=== PATIENT | male | born 1950 | race Caucasian/White ===

== ENCOUNTER 2019-01-02 11:39 | Inpatient (IN) ==
[2019-01-02] MEDS ORDERED: Albuterol 2.5 MG/3 ML NEBULIZER IH ONE (12:02)
[2019-01-02] MEDS ORDERED: cefOXitin 2,000 MG in Water for inj. (sterile) 20 ML IVP ONE (12:02)
--- NOTE | 2019-01-02 12:14 | Anesthesia Evaluation PreOp ---
Date of Encounter: 01/02/19 Time of Encounter: 12:12 - Past History Planned Operation: Robotic Abdominal Pernieal Resection Cardiac History: HTN, Hyperlipidemia Pulmonary History: Asthma, COPD (home O2 qhs) LEATHER [employer]T LO[employer] CUTTER History: Denies Any Significant HX Other Medical History: GERD, Other (rectal CA S/P chemo/XRT) Anesthesia History: No Prior Anesthetic Complications, Past Anesthesia Alcohol Use: occasionally Drug use: none Medications and Allergies Esomeprazole Magnesium [Nexium] 20 mg PO DAILY 09/11/16 [History] Fluticasone/Salmeterol [Advair 250-50 Diskus] 1 puff IH QPM 09/11/16 [History] Tiotropium [Spiriva] 1 puff IH 0700 09/11/16 [History] Tamsulosin HCl [Flomax] 0.4 mg PO DAILY #30 cap.er.24h 04/21/18 [Rx] amLODIPine [Norvasc] 5 mg PO DAILY #30 tablet 07/22/18 [Rx] DULoxetine [Cymbalta] 30 mg PO BID #60 capsule.dr 10/28/18 [Rx] Allergy/AdvReac Type Severity Reaction Status Date / Time No Known Allergies Allergy Verified 12/23/18 08:48 - Meds/Allergy Pre-op Review Medications Reviewed: Yes Allergies Reviewed: Yes Beta Blockers on Current Med List: No Anesthesia Results - Labs Laboratory Tests 05/21/17 12/09/18 12/09/18 13:26 07:50 07:56 WBC 2.3 L Hgb 12.4 L Hct 38.6 Plt Count 103 L PT 10.5 INR 1.0 APTT 27.0 Sodium 139 Potassium 3.8 BUN 13 Creatinine 0.89 - Imaging EKG: report reviewed (12/23/2018 SINUS RHYTHM BORDERLINE LEFT AXIS DEVIATION [QRS AXIS < -20] POSSIBLE RIGHT VENTRICULAR CONDUCTION DELAY [RSR (QR) IN V1/V2]) Anesthesia Exam O2 Sat Height 1.8 m Weight 78.018 kg O2 Sat by Pulse Oximetry 96 Vital Signs Temp Pulse Resp BP Pulse Ox 98.5 F 87 18 144/87 96 01/02/19 12:11 01/02/19 12:11 01/02/19 12:11 01/02/19 12:11 01/02/19 12:11 Height: 5'11'' Weight: 172 lbs NPO (# of Hours): 8 Pain Scale: 0 Pain Scale Used: Numeric (1 - 10) - HEENT Pupil (Motor): EOMI Mallampati: II Teeth: Normal Oral Opening: Greater than 3 - LEATHER [employer] LO[employer] C[employer]TER LOC: Oriented [employer] C[employer] Motor: Normal RUE, Normal LUE, Normal RLE, Normal LLE, Normal Face [employer] LO[employer] C[employer] Sensory: Normal: RUE, LUE, Face, Deficit: RLE, LLE - Cardiac Rhythm: Regular Murmur: None - Pulmonary Breath Sounds: bilateral Clear Respiratory Effort: Symmetrical Anesthesia Assess/Plan ASA Score: 3 Level of consciousness: Cooperative, Oriented, Tranquil Anesthetic Plan: General Monitoring Plan: Standard Monitors Recovery Plan: PACU
[2019-01-02] MEDS ORDERED: Ringers Solution, Lactated 1,000 ML IVC SCH (12:15)
[2019-01-02] MEDS ORDERED: Gabapentin 300 MG CAPSULE PO ONE (13:07)
[2019-01-02] MEDS ORDERED: traMADol 50 MG TABLET PO ONE (13:07)
[2019-01-02] MEDS ORDERED: *HR* OxyCODONE Immed Rel 5 MG TABLET PO PRN (13:07)
[2019-01-02] MEDS ORDERED: Celecoxib 200 MG CAPSULE PO ONE (13:07)
--- NOTE | 2019-01-02 13:27 | History & Physical Report ---
Date of Encounter: 01/02/19 Time of Encounter: 13:26 24 Hour HP Update - Instructions Instructions: If the History and Physical is less than 30 days old and was completed prior to A.M. admission and or procedure and has NOT been updated on calendar day of procedure please complete this update prior to performing procedure. - Update Patient reports changes in Medical Condition: No Changes in examination, assessment, or condition: No Changes in Medication: No Preop tests/diagnostics Reviewed: Yes Surgery Remains Indicated: Yes Consent for Planned Operative Procedure(s) Verified: Yes - Pre-Operative Checklist Preoperative Checklist Indicated: Yes Prophylactic Antibiotic Ordered: Yes Home Medications Include Beta Nakul: No
[2019-01-02] MEDS ORDERED: *HR* Propofol 200 MG/20 ML VIAL IVP ONE (14:10)
[2019-01-02] MEDS ORDERED: *HR* FentaNYL (PF) 100 MCG/2 ML VIAL ONE ×2 (14:10→17:15)
[2019-01-02] MEDS ORDERED: *HR* Succinylcholine 200 MG/10 ML VIAL IVP ONE (14:11)
[2019-01-02] MEDS ORDERED: Dexamethasone 4 MG/ML VIAL ONE (14:11)
[2019-01-02] MEDS ORDERED: *HR* Rocuronium Bromide 50 MG/5 ML VIAL ONE ×2 (14:11→17:17)
[2019-01-02] MEDS ORDERED: Lidocaine -MPF 2% 2 ML VIAL ONE (14:11)
[2019-01-02] MEDS ORDERED: Ondansetron 4 MG/2 ML VIAL ONE (14:11)
[2019-01-02] MEDS ORDERED: Neostigmine Methylsulfate 3 MG/3 ML SYRINGE ONE (15:12)
[2019-01-02] MEDS ORDERED: EPHEDrine 50 MG/ML VIAL ONE (16:35)
--- NOTE | 2019-01-02 19:09 | Operative Note ---
Date of procedure: 01/02/19 Pre-op diagnosis: Rectal cancer Post-op diagnosis: same Procedure: Robotic abdominoperineal resection with end colostomy Anesthesia: ATNON Surgeon: Jules Alvarez Was there an dental assistant medical assistant present: Yes Manager Division: Colette Meléndez Estimated blood loss (cc): 100 Specimen: Rectum Condition: stable Disposition: floor Procedure in Detail: After informed consent, patient taken operating room placed supine position. After adequate sedation anesthesia patient was placed in a lithotomy position. After proper timeout a 12 mm cannula site was placed right superior to the umbilicus. Pneumoperitoneum was greater. A 13 mm cannula was placed in right lower quadrant. 5 mm camera was placed in the right upper quadrant. An 8 mm cannula was placed in subxiphoid region followed by another 8 mm in the left lower quadrant. Patient was placed in a headdown position. The robot was docked over the patient's left hip. Small bowel swept out of the pelvis. Rectosigmoid colon was then grasped and retracted cephalad. The peritoneum was then scored level of the sacral promontory. The left ureter was identified and kept on harm's way. The inferior mesenteric artery was then taken with a vessel sealer. The lateral rectosigmoid stalks were taken down the vessel sealer. The dissection was carried out down to the pelvic floor. The pelvic floor musculature was easily visualized. Rectosigmoid colon was dissected free from the retro-pubic tubercle region and the seminal vesicles were kept out of harm's way. Once it was freed a 60 mm robotic Endo staplers fired across the rectum. Once it was retracted and area was demarcated on the rectosigmoid sigmoid colon for transection. Indocyanine green was infused and we had excellent perfusion. Once the bowel had been transected, further dissection was carried down in the pelvis to the pelvic floor. The anorectal sling was encountered and there were attachments to the distal rectum that were freed with a vessel sealer. Once this portion was completed the robot was removed from the patient's side and the anus was visualized. An elliptical incision was made around the anus. Dissection is carried down through the dermis and subcutaneous tissues. The pelvic floor was incised with electrocautery and cut mode. Once the anus a been freed dissection was further carried into the pelvis until the peritoneal cavity was entered. The anus and rectum were then removed. The pelvic floor was closed with interrupted 2-0 Vicryl sutures. A drain a been placed as well. The musculature was then approximated as well with 2-0 Vicryl suture as well as the skin. Chay were placed in the skin. He tolerated the procedure well at that point a and colostomy was formed on the patient's left abdomen. This is matured with 3-0 Vicryl sutures. At that point the procedure was terminated. All incisions are closed with 0 Vicryl suture and chay.
[2019-01-02] MEDS: *HR* HYDROmorphone (PF) 1 MG/ML SYRINGE IVP PRN ×8 (19:45→20:20)
--- NOTE | 2019-01-02 20:06 | Anesthesia Evaluation Post Op ---
Date of Encounter: 01/02/19 Time of Encounter: 20:53 - Discharge PostOp Status: Transfer Patient to floor (Patient's vital signs have been reviewed. Patient is stable postoperatively and has adequately recovered from anesthesia. Patient is determined to have stable airway patency and respiratory function including respiratory rate and oxygen saturation. Patient has a stable heart rate, blood pressure and adequate hydration. Patients mental status is acceptable. Patients temperature is appropriate. Pain and nausea are adequately controlled)
[2019-01-02] MEDS ORDERED: Ketorolac 30 MG/ML VIAL IVP ONE (20:27)
[2019-01-02] MEDS ORDERED: Acetaminophen IV 1,000 MG/100 ML INFUS..BTL IVPB ONE (20:27)
[2019-01-02] MEDS ORDERED: Naloxone 0.4 MG/ML INJ IVP PRN (21:08)
[2019-01-02] MEDS ORDERED: Ondansetron 4 MG/2 ML VIAL IVP PRN (21:08)
[2019-01-02] MEDS: 0.9 % Sodium Chloride 1,000 ML IVC SCH (23:04)
[2019-01-03] MEDS ORDERED: Ketorolac 15 MG/ML VIAL IM SCH
[2019-01-03] MEDS ORDERED: *HR* Heparin 5,000 UNIT/ML VIAL SQ SCH (06:00)
[2019-01-03 06:01] LABS: BUN/Creatinine Ratio 14 (6-26); Blood Urea Nitrogen 12 mg/dL (8-23); Calcium 8.5 mg/dL (8.6-10.3); Carbon Dioxide 25 mEq/L (23-29); Chloride 103 mEq/L (98-107); Glucose 157 mg/dL (70-105); Osmolality,Calculated 283 (280-300); Potassium 4.5 mEq/L (3.5-5.1); Sodium 135 mEq/L (136-145); eGFR For African Americans > 60 (> 60); eGFR For Non-African Americans > 60 (> 60)
[2019-01-03 06:09] LABS: Hematocrit 30.6 % (37.5-50.1); Hemoglobin 9.7 g/dL (12.9-16.9); Immature Granulocytes % 1.3 % (0-4); Immature Platelets 7.4 % (1.1-6.1); Lymphocytes # 0.5 K/mcL (0.6-4.6); Lymphocytes % 7.3 %; Mean Corpuscular HGB Conc 31.7 g/dL (31.6-35.5); Mean Corpuscular Hemoglobin 36.1 pg (28.0-33.3); Mean Corpuscular Volume 113.8 fL (83.0-100.0); Mean Platelet Volume 10.9 fL (9.4-12.4); Monocytes # 0.8 K/mcL (0.0-1.3); Monocytes % 12.4 %; Neutrophils # 5.3 K/mcL (1.6-8.9); Red Blood Count 2.69 M/mcL (4.19-5.50); Red Cell Distribution Width 17.5 % (11.5-14.5); White Blood Count 6.7 K/mcL (4.3-11.1)
[2019-01-03 06:27] LABS: Platelet Count 86 K/mcL (140-400)
[2019-01-03 07:54] LABS: Anisocytosis 1+ (Not Present); Macrocytosis Present (Not Present)
[2019-01-03 07:55] LABS: Platelet Estimate Decreased (Normal)
--- NOTE | 2019-01-03 12:37 | General Surgery Progress Note ---
Date of Encounter: 01/03/19 Time of Encounter: 12:34 - Assessment and Plan (1) Rectal cancer Current Visit: Yes Status: Acute 68M POD #1 s/p robotic APR 2/2 rectal cancer; pain controlled; tolerating liquids cont with current pain regimen activity as tolerated - will need assistance cont with CLD will need teaching for his colostomy chemical dvt prophylaxis with heparin IS usage Subjective Patient reports: no new complaints, feels better, still having pain, pain is less, tolerating liquids well, afebrile Objective Vital Signs - Last 8 Hours Temp Pulse Resp BP Pulse Ox 01/03/19 11:57 98.6 F 69 15 92 01/03/19 11:15 98 01/03/19 07:05 98.2 F 70 15 120/76 94 Intake and Output 01/02/19 01/03/19 01/03/19 23:59 07:59 15:59 Intake Total 100 / 100 300 / 1657 1357 / 1657 Output Total 430 / 430 310 / 430 120 / 430 Balance -330 / -330 -10 / 1227 1237 / 1227 Intake: IV Fluids 100 / 100 877 / 877 0.9 % Sodium Chloride 1,000 ML 877 / 877 @ 75 mls/hr IVC .[id number] [facility] Rx #:[id number] Ofirmev 1,000 mg/100 ml 1,000 100 / 100 mg In 100 ml @ 400 mls/hr IVPB ONCE ONE Rx#:[id number] Oral 300 / 780 480 / 780 Output: Urine 200 / 200 Stool 150 / 150 Estimated Blood Loss 100 / 100 Catheter 50 / 150 100 / 150 Urethral (Hirsch) 100 / 100 Wound Drainage 130 / 130 110 / 130 20 / 130 rectum 60 / 60 110 / 130 20 / 130 Other: Meal Breakfast Percent of Meal Consumed 100% Stool Color Dark Red Blood # Voids 0 - General physical appearance no distress - Cardiovascular Cardiovascular exam: Present: RRR - Abdomen Abdomen: Present: soft, tender (appropriately tender) - Incision Incision: Present: clean and dry, intact - Integumentary no rash - Neurologic CN 2-12 grossly intact - Psychiatric oriented to time, oriented to person, oriented to place - Labs 01/03/19 05:07 01/03/19 05:07 Diabetes panel 01/03/19 Range/Units 05:07 Sodium 135 L (136-145) mEq/L Potassium 4.5 (3.5-5.1) mEq/L Chloride 103 (98-107) mEq/L Carbon Dioxide 25 (23-29) mEq/L BUN 12 (8-23) mg/dL Creatinine 0.83 (0.70-1.30) mg/dL Glucose 157 H (70-105) mg/dL Calcium 8.5 L (8.6-10.3) mg/dL Calcium panel 01/03/19 Range/Units 05:07 Calcium 8.5 L (8.6-10.3) mg/dL Pituitary panel 01/03/19 Range/Units 05:07 Sodium 135 L (136-145) mEq/L Potassium 4.5 (3.5-5.1) mEq/L Chloride 103 (98-107) mEq/L Carbon Dioxide 25 (23-29) mEq/L BUN 12 (8-23) mg/dL Creatinine 0.83 (0.70-1.30) mg/dL Glucose 157 H (70-105) mg/dL Calcium 8.5 L (8.6-10.3) mg/dL Adrenal panel 01/03/19 Range/Units 05:07 Sodium 135 L (136-145) mEq/L Potassium 4.5 (3.5-5.1) mEq/L Chloride 103 (98-107) mEq/L Carbon Dioxide 25 (23-29) mEq/L BUN 12 (8-23) mg/dL Creatinine 0.83 (0.70-1.30) mg/dL Glucose 157 H (70-105) mg/dL Calcium 8.5 L (8.6-10.3) mg/dL Consult Discharge Plan - Plan Referrals: Jules Alvarez DO [Partnered Physician] - 01/13/19 8:45 am Altaf Grimes MD [Primary Care Provider] -
[2019-01-03] MEDS: 0.9 % Sodium Chloride 1,000 ML IVC SCH (12:58)
[2019-01-03] MEDS: amLODIPine 5 MG TABLET PO SCH (13:37)
[2019-01-03] MEDS: Budesonide/Formoterol 80/4.5 1 PUFF INH IH SCH (15:47)
[2019-01-03] MEDS: Tiotropium 18 MCG inhalation IH SCH (15:47)
[2019-01-03] MEDS: *HR* Heparin 5,000 UNIT/ML VIAL SQ SCH (17:57)
[2019-01-04] MEDS: 0.9 % Sodium Chloride 1,000 ML IVC SCH ×2 (00:22→14:10)
[2019-01-04] MEDS: *HR* Heparin 5,000 UNIT/ML VIAL SQ SCH ×2 (06:44→18:33)
[2019-01-04] MEDS: Tiotropium 18 MCG inhalation IH SCH (08:19)
[2019-01-04] MEDS: amLODIPine 5 MG TABLET PO SCH (10:10)
--- NOTE | 2019-01-04 15:29 | General Surgery Progress Note ---
Date of Encounter: 01/04/19 Time of Encounter: 15:27 - Assessment and Plan (1) Rectal cancer Current Visit: Yes Status: Acute 68M POD #2 s/p robotic APR 2/ rectal cancer; pain controlled; tolerating liquids cont with current pain regimen activity as tolerated - will need assistance adv to FLD will need teaching for his colostomy chemical dvt prophylaxis with heparin IS usage Subjective Patient reports: no new complaints, feels better, tolerating liquids well, afebrile Objective Vital Signs - Last 8 Hours Temp Pulse Resp BP Pulse Ox 01/04/19 12:23 98.7 F 79 17 99/61 92 01/04/19 08:21 98.2 F 75 16 114/72 93 01/04/19 08:19 16 96 Intake and Output 01/03/19 01/04/19 01/04/19 23:59 07:59 15:59 Intake Total 1003 / 2983 837 / 1777 940 / 1777 Output Total 265 / 935 540 / 2060 1520 / 2060 Balance 738 / 2048 297 / -283 -580 / -283 Intake: IV Fluids 283 / 1283 717 / 1417 700 / 1417 0.9 % Sodium Chloride 1,000 ML 283 / 1283 717 / 1417 700 / 1417 @ 75 mls/hr IVC .[id number] [facility] Rx #:[id number] Oral 720 / 1700 120 / 360 240 / 360 Output: Stool 0 / 150 50 / 50 Catheter 225 / 575 500 / 1900 1400 / 1900 Urethral (Hirsch) 0 / 200 1200 / 1200 Wound Drainage 40 / 210 40 / 110 70 / 110 rectum 40 / 210 40 / 110 70 / 110 Other: Meal Dinner Percent of Meal Consumed 100% Stool Consistency liquid Stool Color Dark Red Blood Weight 81.1 kg Patient Weight 01/04/19 23:59 Weight 81.1 kg - General physical appearance no distress - Respiratory normal expansion, normal respiratory effort - Cardiovascular Cardiovascular exam: Present: RRR - Abdomen Abdomen: Present: soft, tender (appropriately tender) - Incision Incision: Present: clean and dry, intact - Neurologic CN 2-12 grossly intact - Musculoskeletal normal posture - Psychiatric oriented to time, oriented to person, oriented to place - Labs 01/03/19 05:07 01/03/19 05:07 Consult Discharge Plan - Plan Referrals: Jules Alvarez DO [Partnered Physician] - 01/13/19 8:45 am Altaf Grimes MD [Primary Care Provider] -
[2019-01-04] MEDS: Budesonide/Formoterol 80/4.5 1 PUFF INH IH SCH (16:27)
[2019-01-04] MEDS: D5% in 0.45% NACL w KCl 20 MEQ/1,000 ML MLS IVC SCH (18:33)
[2019-01-05] MEDS: *HR* Heparin 5,000 UNIT/ML VIAL SQ SCH ×2 (06:05→18:51)
[2019-01-05] MEDS: D5% in 0.45% NACL w KCl 20 MEQ/1,000 ML MLS IVC SCH (06:05)
[2019-01-05] MEDS: Tiotropium 18 MCG inhalation IH SCH (07:45)
[2019-01-05] MEDS: amLODIPine 5 MG TABLET PO SCH (08:40)
[2019-01-05] MEDS ORDERED: *HR* OxyCODONE Immed Rel 5 MG TABLET PO PRN (08:49)
--- NOTE | 2019-01-05 09:06 | General Surgery Progress Note ---
Date of Encounter: 01/05/19 Time of Encounter: 08:15 - Assessment and Plan (1) Rectal cancer Current Visit: Yes Status: Acute Date of procedure: 01/02/19 Pre-op diagnosis: Rectal cancer Post-op diagnosis: same Procedure: Robotic abdominoperineal resection with end colostomy Anesthesia: ANTON Surgeon: Jules Alvarez POD #3 as above. Pathology remains pending. Stoma is minimally edematous and with ecchymosis, otherwise pink and moist. Bloody output as expected. He is tolerating a full liquid diet, but reports some nausea if he "eats too much." He has not been using his IS "b/c it has sharp corners and cut my lip." This [employer] AUTHORING SPECIALIST provided a new IS and education. VSS, afebrile, no indication to repeat labs at this time. Plan: Continue supportive care and discomfort management while awaiting full return of bowel function schedule tylenol and ibuprofen; prn Oxycodone (premedicate with Zofran) add stool softeners, continue full liquids for breakfast/lunch, possibly advance to soft diet for lunch or dinner Continue G.I. and DVT prophylaxis Incentive spirometry 10 times every hour while awake Out of bed to chair TID, do not offer meal trays while in the bed ambulate TID Activity as tolerated consult PT/OT for mobilization and discharge planning. Apply ice 20 minutes on 20 minutes off as needed consult social sciences lecturer for home healthcare discharge likely 01/06 consult placed to enterstomal therapist for new colostomy education and prescription. Patient will likely discharge 01/06/2019 consult to nutrition for new colostomy diet patient may shower continue daily dressing changes to VANDANA site and perineum colostomy care SL IV (2) BPH (benign prostatic hyperplasia) Current Visit: Yes Status: Chronic Resumed flomax 01/03 d/c griggs cath today Qualifiers: Lower urinary tract symptom presence: symptoms present Lower urinary tract symptom detail: urinary frequency Qualified Code(s): N40.1 - Benign prostatic hyperplasia with lower urinary tract symptoms; R35.0 - Frequency of micturition; R35.0 - Frequency of micturition Subjective Patient reports: no new complaints, feels better, still having pain, pain is less, tolerating liquids well, voiding w/o difficulty (per griggs), flatus, bowel movement (per colosotmy), nausea (after eating) Objective Vital Signs - Last 8 Hours Temp Pulse Resp BP Pulse Ox 01/05/19 07:45 16 95 01/05/19 06:15 98.5 F 82 16 115/71 94 01/05/19 03:09 98.5 F 82 20 122/79 94 Intake and Output 01/04/19 01/05/19 01/05/19 23:59 07:59 15:59 Intake Total 400 / 2477 1000 / 1480 480 / 1480 Output Total 1235 / 3295 1500 / 1500 Balance -835 / -818 -500 / -20 480 / -20 Intake: IV Fluids 400 / 2117 1000 / 1000 0.9 % Sodium Chloride 1,000 ML 400 / 2117 @ 75 mls/hr IVC .[id number] [facility] Rx #:[id number] KCl 20mEq IN D5%-0.45 NACL 20 1000 / 1000 meq In 1,000 ml @ 75 mls/hr IVC .[id number] [facility] Rx#:[id number] Oral 480 / 480 Output: Urine 600 / 600 Stool 0 / 0 Catheter 1200 / 3100 900 / 900 Urethral (Griggs) 350 / 1550 Wound Drainage 35 / 145 0 / 0 rectum 35 / 145 0 / 0 Other: Meal Breakfast Percent of Meal Consumed 100% # Voids 1 Weight 81.1 kg Patient Weight 01/05/19 23:59 Weight 81.1 kg - General physical appearance well developed, well nourished, no distress, moderate pain (woth movement; o therwise controlled) - Eyes normal ocular movement - ENT atraumatic, normocephalic - Neck Neck exam: trachea midline - Respiratory other (decreased respiratory effort and breath sounds) - Abdomen Abdomen: Present: bowel sounds present, soft, tender (expected postoperative), wound (VANDANA is with SS drainage) Hernia: none - Incision Incision: Present: clean and dry, intact - Genitourinary other (scrotal ecchymosis noted) - Rectum other (N/A s/p APR) - Integumentary no rash - Neurologic normal sensation - Musculoskeletal normal posture - Psychiatric oriented to time, oriented to person, oriented to place, speech is normal, memory intact - Labs 01/03/19 05:07 01/03/19 05:07 Consult Discharge Plan - Plan Referrals: Jules Alvarez DO [Partnered Physician] - 01/13/19 8:45 am Altaf Grimes MD [Primary Care Provider] -
[2019-01-05] MEDS: Acetaminophen 325 MG TABLET PO SCH ×3 (09:43→22:58)
[2019-01-05] MEDS: Ibuprofen 600 MG TABLET PO SCH ×2 (11:48→18:51)
[2019-01-05] MEDS: Budesonide/Formoterol 80/4.5 1 PUFF INH IH SCH (16:07)
[2019-01-06] MEDS: Ibuprofen 600 MG TABLET PO SCH ×5 (00:37→23:57)
[2019-01-06] MEDS: Acetaminophen 325 MG TABLET PO SCH ×4 (04:34→23:57)
[2019-01-06] MEDS: *HR* Heparin 5,000 UNIT/ML VIAL SQ SCH ×2 (06:22→18:01)
[2019-01-06] MEDS: Tiotropium 18 MCG inhalation IH SCH (08:02)
[2019-01-06] MEDS: amLODIPine 5 MG TABLET PO SCH (08:30)
--- NOTE | 2019-01-06 11:44 | General Surgery Progress Note ---
Date of Encounter: 01/06/19 Time of Encounter: 08:00 - Assessment and Plan (1) Rectal cancer Current Visit: Yes Status: Acute Date of procedure: 01/02/19 Pre-op diagnosis: Rectal cancer Post-op diagnosis: same Procedure: Robotic abdominoperineal resection with end colostomy Anesthesia: ANTON Surgeon: Jules Alvarez POD #4 as above. Pathology remains pending. Stoma is minimally edematous and with ecchymosis, otherwise pink and moist. Flatus is present, but no output other than bowel sweat noted. Plan: Continue supportive care and discomfort management while awaiting full return of bowel function schedule tylenol and ibuprofen; prn Oxycodone (premedicate with Zofran) continue stool softeners, continue full liquids for breakfast/lunch, possibly advance to soft diet for lunch or dinner Continue G.I. and DVT prophylaxis Incentive spirometry 10 times every hour while awake Out of bed to chair TID, do not offer meal trays while in the bed ambulate TID Activity as tolerated PT/OT does not anticipate needs Apply ice 20 minutes on 20 minutes off as needed SW following consult placed to enterstomal therapist for new colostomy education and prescription. Patient will likely discharge 01/07/2019 consult to nutrition for new colostomy diet patient may shower continue daily dressing changes to VANDANA site and perineum colostomy care SL IV (2) BPH (benign prostatic hyperplasia) Current Visit: Yes Status: Chronic Resumed flomax 01/03 Qualifiers: Lower urinary tract symptom presence: symptoms present Lower urinary tract symptom detail: urinary frequency Qualified Code(s): N40.1 - Benign prostatic hyperplasia with lower urinary tract symptoms; R35.0 - Frequency of micturition; R35.0 - Frequency of micturition Subjective Patient reports: no new complaints (reports pain on perineum incision when sitting upright), feels better, pain is less, tolerating liquids well, voiding w/o difficulty, flatus, no bowel movement, afebrile Objective Vital Signs - Last 8 Hours Temp Pulse Resp BP Pulse Ox 01/06/19 10:47 97.7 F 70 16 111/73 97 01/06/19 07:32 97.4 F L 69 16 113/75 96 01/06/19 04:23 97.7 F 70 15 111/73 96 Intake and Output 01/05/19 01/06/1901/06/19 23:59 07:59 15:59 Intake Total 0 / 1480 0 / 0 Output Total 350 / 3875 600 / 600 Balance -350 / -2395 -600 / -600 Intake: Oral 0 / 480 0 / 0 Output: Urine 350 / 950 600 / 600 Other: Weight 81.7 kg Patient Weight 01/06/19 23:59 Weight 81.7 kg - General physical appearance no distress, moderate pain (controlled) - ENT normal nares, atraumatic, normocephalic - Respiratory normal expansion, clear to auscultation - Cardiovascular Cardiovascular exam: Present: RRR - Abdomen Abdomen: Present: bowel sounds present, soft, tender (expected postoperative), wound (Stoma is with vascular edema/bruising but overall pink and moist) Hernia: none - Incision Incision: Present: clean and dry, intact - Rectum other (n/a. VANDANA is w/ SS drainage. Site unremarkable) - Integumentary no rash - Neurologic normal sensation - Musculoskeletal normal posture - Psychiatric oriented to time, oriented to person, speech is normal, memory intact - Labs 01/03/19 05:07 01/03/19 05:07 Consult Discharge Plan - Plan Referrals: Jules Alvarez DO [Partnered Physician] - 01/13/19 8:45 am Altaf Grimes MD [Primary Care Provider] -
[2019-01-06] MEDS: Budesonide/Formoterol 80/4.5 1 PUFF INH IH SCH (16:34)
[2019-01-07] MEDS: Acetaminophen 325 MG TABLET PO SCH ×2 (03:30→08:23)
[2019-01-07] MEDS: *HR* Heparin 5,000 UNIT/ML VIAL SQ SCH (06:22)
[2019-01-07] MEDS: Ibuprofen 600 MG TABLET PO SCH (06:23)
[2019-01-07 06:38] VITALS: BP 120/65
[2019-01-07] MEDS: Tiotropium 18 MCG inhalation IH SCH (07:55)
[2019-01-07] MEDS: amLODIPine 5 MG TABLET PO SCH (08:24)
--- NOTE | 2019-01-07 10:13 | Discharge Summary ---
Orders not resulted at time of discharge: Pending orders 01/02/19 18:33 Surgical Pathology [PTH] Routine Date of Encounter: 01/07/19 Time of Encounter: 09:30 - Discharge Diagnosis (1) Rectal cancer Priority: Primary Status: Chronic (2) BPH (benign prostatic hyperplasia) Priority: Secondary Status: Chronic Qualifiers: Lower urinary tract symptom presence: symptoms present Lower urinary tract symptom detail: urinary frequency Qualified Code(s): N40.1 - Benign prostatic hyperplasia with lower urinary tract symptoms; R35.0 - Frequency of micturition; R35.0 - Frequency of micturition General Surgery Exam Initial Vital Signs Temp Pulse Resp BP Pulse Ox 98.5 F 87 18 144/87 96 01/02/19 12:11 01/02/19 12:11 01/02/19 12:11 01/02/19 12:11 01/02/19 12:11 - General physical appearance well developed, well nourished, no distress - Eyes PERRL, normal ocular movement - ENT normal mucosa, atraumatic, normocephalic - Neck trachea midline - Respiratory normal respiratory effort, clear to auscultation - Cardiovascular Cardiovascular exam: Present: RRR - Abdomen Abdomen general surgery: Present: bowel sounds present, soft, tender (expected post-operative tenderness), wound (Ileostomy is pink and moist with positive flatus and liquid stool) - Incision Incision: Present: clean and dry, intact - Rectum Rectum: Present: other (VANDANA drain with serousang. drainage noted (15ml noted since midnight)) - Integumentary Integumentary general surgery: Present: warm and dry - Neurologic Present: CN 2-12 grossly intact - Musculoskeletal Present: other (physical deconditioning noted) - Psychiatric Psychiatric general surgery: Present: A&Ox3 - Hospital Course Hospital course: Mr. Mann is a 68 year old male with a history of rectal cancer. He is status po st a Robotic abdominoperineal resection with end colostomy with Dr. Alvarez. His diet has slowly been advanced with return of bowel function. He is tolerating a regular diet without nausea or vomiting. He is having ostomy function. His postoperative pain is very well controlled. His VANDANA drainage was minimal and was removed today. His vital signs are stable and he is afebrile. He is urinating without difficulty. He is weak but is ambulating without difficulty. He has had ostomy teaching per the wound care nurse. We will begin discharge planning to home with home health care and plan for outpatient follow-up in the next 7-10 days. The patient will call the office with any further questions or concerns prior to his follow-up appointment. - Time Spent with Patient Total time spent providing and/or coordinating discharge services: Less than 30 minutes - Discharge Medications Prescriptions: New Docusate [Colace] 100 mg PO BID PRN #30 capsule PRN Reason: Constipation Ibuprofen [Motrin] 600 mg PO Q6HR #40 tablet OxyCODONE/APAP 5/325 [Percocet 5/325 MG] 1 each PO Q6HR PRN 5 Days #20 tablet PRN Reason: Pain Continued Tiotropium [Spiriva] 1 puff IH 0700 Fluticasone/Salmeterol [Advair 250-50 Diskus] 1 puff IH QPM Esomeprazole Magnesium [Nexium] 20 mg PO DAILY Tamsulosin HCl [Flomax] 0.4 mg PO DAILY #30 cap.er.24h amLODIPine [Norvasc] 5 mg PO DAILY #30 tablet DULoxetine [Cymbalta] 30 mg PO BID #60 capsule. Home Medications: Esomeprazole Magnesium [Nexium] 20 mg PO DAILY 09/11/16 [History] Fluticasone/Salmeterol [Advair 250-50 Diskus] 1 puff IH QPM 09/11/16 [History] Tiotropium [Spiriva] 1 puff IH 0700 09/11/16 [History] Tamsulosin HCl [Flomax] 0.4 mg PO DAILY #30 cap.er.24h 04/21/18 [Rx] amLODIPine [Norvasc] 5 mg PO DAILY #30 tablet 07/22/18 [Rx] DULoxetine [Cymbalta] 30 mg PO BID #60 capsule. 10/28/18 [Rx] Docusate [Colace] 100 mg PO BID PRN #30 capsule 01/07/19 [Rx] Ibuprofen [Motrin] 600 mg PO Q6HR #40 tablet 01/07/19 [Rx] OxyCODONE/APAP 5/325 [Percocet 5/325 MG] 1 each PO Q6HR PRN 5 Days #20 tablet 01/07/19 [Rx] Allergies/Adverse Reactions: Allergy/AdvReac Type Severity Reaction Status Date / Time No Known Allergies Allergy Verified 12/23/18 08:48 Date of admission: 01/02/19 21:01 Primary care physician: Altaf Grimes MD Consults: 01/05/19 08:31 Consult to Enterostomal Therapist [CONS] Stat Reason for Consult: New ostomy teaching and Rx Time Notified: 08:32 Call Completed: No Consult to Occupational Therapy [CONS] Routine Comment: Evaluate, develop and implement POC Reason for Consult: Mobilization and d/c planning; new colostomy Does patient have active BEDREST order?: No Is patient medically & hemodynamically stable?: Yes Patient assessed for mobility or mobilized this visit?: No Consult to Physical Therapy [CONS] Routine Comment: Evaluate, develop and implement POC Reason for Consult: Mobilization and d/c planning; new colostomy Does patient have active BEDREST order?: No Is patient medically & hemodynamically stable?: Yes Patient assessed for mobility or mobilized this visit?: No Consult to Web Communications Specialist [CONS] Routine Reason for SW Consult: HHC for new colostomy. PT/OT have also been consulted consult to travel registered nurse nicu [Consult to Nutrition] [CONS] Routine Comment: New end colostomy diet Consulting Provider: NUTRITION Reason for Dietary Consult: Diet Education Discharging clinician: Bridgett Alvarez Anticipated date of discharge: 01/07/19 - Patient Status Disposition: Home Health Service Condition: Good Functional capacity at discharge: independent ambulation Overall status at discharge: patient is progressing back to baseline - Discharge Instructions Instructions: Colostomy Care (DC), Colostomy Creation (DC) Follow Up With: Jules Alvarez DO [Partnered Physician] - 01/13/19 8:45 am Altaf Grimes MD [Primary Care Provider] - Additional Instructions: General Surgical Discharge Instructions 1. No pushing, pulling, or lifting greater than 15 lbs for 4 weeks. 2. You may remove your dressings and shower beginning today, but no tub baths, soaking, or swimming for 2 weeks. 3. No driving for one weeks unless otherwise specified and then you may resume driving when you are off narcotics and are safe to react in a car. 4. Apply ice 20 minutes every hour that you are awake to your abdomen and Take ibuprofen every 8 hours for discomfort. If this does not relieve discomfort, you may take the as needed Percocet. Eat a small snack with pain medication as this will help reduce the risk of nausea. Take narcotics as directed. Do not take more narcotics then directed and do not share your narcotics with any other person. Do not drink alcohol while on narcotics. You can take the Zofran/ondansetron if needed for nausea or with a dose of narcotics to prevent nausea. 5. Take stool softeners (Colace) or a water based laxative (Miralax) while taking narcotics. You may hold for loose stools. 6. Report any fevers greater than 100.5F, increase abdominal discomfort, drainage that looks like pus, increased redness or pain at the surgical site, or any vomiting. 7. Report any pain in the calves, shortness of breath, or rapid heartbeat. 8. Follow-up in the office as directed. Daily VANDANA Drain Site Care: 1. Remove dressing to shower 2. Cleanse site with soap and water 3. Apply gauze and tape to secure daily and prn if soiled (may use bandaid if drainage if minimal) - Diet and Activity Diet: advance to your usual diet
--- NOTE | 2019-01-07 12:50 | Physician Discharge Referral ---
Home Health/Hosp Referral Info Transfer to: Home Health Attending Provider: Dr. Artie Alvarez Provider in Charge Post Discharge: PCP (and Dr. Artie Alvarez) - Diagnosis (1) Rectal cancer Priority: Primary Status: Chronic (2) BPH (benign prostatic hyperplasia) Priority: Secondary Status: Chronic - Respiratory Orders Oxygen / L per min (2L per nasal cannula at night prn) Smoking Cessation: Smoking cessation has been advised. For more information, call the [employer] Tobacco Quit Line at 9-894-STYD-NOW. - Dressing/Wound Care Site: Perineum/Buttock- cleanse the incision and drain site with soap and water in the shower and pat dry. May apply dry dressing and tape to secure daily and as needed if soiled Ostomy care per protocol- change appliance every 5-7 days and as needed if leaking - Diet/Nutrition Diet/Nutrition Orders: Regular - Activity Activity Orders: Up ad jade, Ambulate - Services Needed Following services are medically necessary services: Nursing, Physical Therapy Home Care Orders: General Surgical Discharge Instructions 1. No pushing, pulling, or lifting greater than 15 lbs for 4 weeks. 2. You may remove your dressings and shower beginning today, but no tub baths, soaking, or swimming for 2 weeks. 3. No driving for one weeks unless otherwise specified and then you may resume driving when you are off narcotics and are safe to react in a car. 4. Apply ice 20 minutes every hour that you are awake to your abdomen and Take ibuprofen every 8 hours for discomfort. If this does not relieve discomfort, you may take the as needed Percocet. Eat a small snack with pain medication as this will help reduce the risk of nausea. Take narcotics as directed. Do not take more narcotics then directed and do not share your narcotics with any other person. Do not drink alcohol while on narcotics. You can take the Zofran/ondansetron if needed for nausea or with a dose of narcotics to prevent nausea. 5. Take stool softeners (Colace) or a water based laxative (Miralax) while taking narcotics. You may hold for loose stools. 6. Report any fevers greater than 100.5F, increase abdominal discomfort, drainage that looks like pus, increased redness or pain at the surgical site, or any vomiting. 7. Report any pain in the calves, shortness of breath, or rapid heartbeat. 8. Follow-up in the office as directed. Daily VANDANA Drain Site Care: 1. Remove dressing to shower 2. Cleanse site with soap and water 3. Apply gauze and tape to secure daily and prn if soiled (may use bandaid if drainage if minimal) - Transfer Medications Prescriptions: Docusate [Colace] 100 mg PO BID PRN #30 capsule PRN Reason: Constipation Transmission Status: Pending to [id number] Ibuprofen [Motrin] 600 mg PO Q6HR #40 tablet Transmission Status: Pending to [id number] OxyCODONE/APAP 5/325 [Percocet 5/325 MG] 1 each PO Q6HR PRN 5 Days #20 tablet PRN Reason: Pain Transmission Status: Received by [id number] Home Medications: Esomeprazole Magnesium [Nexium] 20 mg PO DAILY 09/11/16 [History] Fluticasone/Salmeterol [Advair 250-50 Diskus] 1 puff IH QPM 09/11/16 [History] Tiotropium [Spiriva] 1 puff IH 0700 09/11/16 [History] Tamsulosin HCl [Flomax] 0.4 mg PO DAILY #30 cap.er.24h 04/21/18 [Rx] amLODIPine [Norvasc] 5 mg PO DAILY #30 tablet 07/22/18 [Rx] DULoxetine [Cymbalta] 30 mg PO BID #60 capsule. 10/28/18 [Rx] Docusate [Colace] 100 mg PO BID PRN #30 capsule 01/07/19 [Rx] Ibuprofen [Motrin] 600 mg PO Q6HR #40 tablet 01/07/19 [Rx] OxyCODONE/APAP 5/325 [Percocet 5/325 MG] 1 each PO Q6HR PRN 5 Days #20 tablet 01/07/19 [Rx] Allergies/Adverse Reactions: Allergy/AdvReac Type Severity Reaction Status Date / Time No Known Allergies Allergy Verified 12/23/18 08:48 Certification: Further, I certify that my clinical findings support that this patient is homebound (i.e. absences from home require considerable and taxing effort and are for medical reasons or faith services or infrequently or short duration when for other reasons) because: Homebound Reason: Patient requires assistance of a person or device to safely leave home, Post-surgery restriction and or conditions limit ability to leave home, Leaving home requires considerable and taxing effort due to condition Attestation: My signature below is to certify that this patient is under my care and that I, or nurse practitioner, or a physician's contract administrative assistant working with me, has a [id number] encounter with this patient.
[2019-01-07] MEDS ORDERED: FLU Vac QV 19-20 (6Month+)/PF 0.5 ML SYRINGE IM ONE (13:21)
== END 2019-01-07 14:39 | disposition home health service (06) | DRG 331 ==
LOC: SAMDAY 11:39 → 3ANU 21:01
PROVIDERS: ADMIT Surgery; ATTEND Surgery

== ENCOUNTER 2019-02-12 11:28 | Inpatient (IN) ==
[2019-02-12] MEDS ORDERED: Ondansetron ODT 4 MG TAB.RAPDIS SL STA (12:12)
[2019-02-12] MEDS ORDERED: *HR* FentaNYL (PF) 100 MCG/2 ML VIAL IVP ONE ×3 (12:13→14:03)
[2019-02-12 12:20] LABS: Basophils % 0.3 %; Hematocrit 38.3 % (37.5-50.1); Hemoglobin 12.6 g/dL (12.9-16.9); Immature Granulocytes % 2.1 % (0-4); Lymphocytes % 17.6 %; Mean Corpuscular HGB Conc 32.9 g/dL (31.6-35.5); Mean Corpuscular Hemoglobin 32.1 pg (28.0-33.3); Mean Platelet Volume 8.9 fL (9.4-12.4); Monocytes # 0.5 K/mcL (0.0-1.3); Monocytes % 8.6 %; Neutrophils # 4.1 K/mcL (1.6-8.9); Platelet Count 159 K/mcL (140-400); Red Blood Count 3.92 M/mcL (4.19-5.50); Red Cell Distribution Width 19.1 % (11.5-14.5); Segmented Neutrophils % 71.4 %; White Blood Count 5.8 K/mcL (4.3-11.1)
[2019-02-12 12:24] LABS: Mean Corpuscular Volume 97.7 fL (83.0-100.0)
[2019-02-12] MEDS ORDERED: Isovue-370 500 ML BOTTLE IVP ONE (12:29)
[2019-02-12 12:37] LABS: Alanine Aminotransferase 12 Units/L (7-52); Albumin 4.2 g/dL (3.5-5.7); Albumin/Globulin Ratio 1.3 (1.1-2.2); Alkaline Phosphatase 102 Units/L (34-104); Aspartate Amino Transferase 28 Units/L (13-39); BUN/Creatinine Ratio 14 (6-26); Bilirubin,Total 1.5 mg/dL (0.3-1.0); Blood Urea Nitrogen 12 mg/dL (8-23); Calcium 9.7 mg/dL (8.6-10.3); Carbon Dioxide 28 mEq/L (23-29); Chloride 98 mEq/L (98-107); Globulin 3.2 g/dL (2.4-3.5); Glucose 137 mg/dL (70-105); Osmolality,Calculated 288 (280-300); Potassium 3.6 mEq/L (3.5-5.1); Sodium 138 mEq/L (136-145); Total Protein 7.4 g/dL (6.4-8.9); eGFR For African Americans > 60 (> 60); eGFR For Non-African Americans > 60 (> 60)
[2019-02-12] MEDS ORDERED: Bisacodyl 10 MG RECTAL SUPPOSITORY RC ONE (14:36)
[2019-02-12] MEDS ORDERED: Naloxone 0.4 MG/ML INJ IVP PRN (14:38)
[2019-02-12] MEDS ORDERED: Ketorolac 15 MG/ML VIAL IVP PRN (14:38)
[2019-02-12] MEDS ORDERED: *HR* HYDROmorphone (PF) 1 MG/ML SYRINGE IVP PRN (14:41)
[2019-02-12] MEDS ORDERED: Chloraseptic Spray 177 ML BOTTLE MM PRN (15:30)
[2019-02-12] MEDS ORDERED: Saliva Stimulant 100ml BOTTLE PO PRN (15:30)
[2019-02-12 15:33] LABS: Bilirubin,Urine Negative (Negative); Blood,Urine Small (Negative); Clarity,Urine Turbid (Clear); Color,Urine Dark Yellow (Yellow); Glucose,Urine (UA) Normal (Normal); Ketones,Urine Negative (Negative); Leukocyte Esterase,Urine Large (Negative); Nitrite,Urine Negative (Negative); PH,Urine 6.5 pH Units (5.0-8.0); Protein,Urine 100 mg/dL (Neg-Trace); Specific Gravity,Urine > 1.030 (1.010-1.025); Urobilinogen,Urine Normal (Normal)
[2019-02-12 15:35] LABS: Bacteria,Urine None Seen per hpf (None-Few); Hyaline Casts,Urine Few per lpf (None-Few); RBC,Urine 15-30 per hpf (0-3); Squamous Epithelial Cell,Urine Many per lpf (None-Few); WBC,Urine TNTC per hpf (0-3)
[2019-02-12] MEDS: D5% in 0.9% NACL w KCl 20 MEQ/1,000 ML MLS IVC SCH (16:24)
[2019-02-12] MEDS: Pantoprazole 40 MG VIAL IVP SCH (18:27)
[2019-02-12] MEDS: cefTRIAXone 1,000 MG in Water for inj. (sterile) 10 ML IVP SCH (18:27)
[2019-02-12] MEDS: Ondansetron 4 MG/2 ML VIAL IVP PRN (19:47)
[2019-02-12] MEDS: Budesonide/Formoterol 160/4.5 1 PUFF INH IH SCH ×2 (21:58→22:02)
[2019-02-13] MEDS: D5% in 0.9% NACL w KCl 20 MEQ/1,000 ML MLS IVC SCH ×2 (03:18→11:05)
[2019-02-13] MEDS: *HR* Enoxaparin 30 MG/0.3 ML SYRINGE SQ SCH (05:20)
[2019-02-13 06:42] LABS: Basophils % 0.3 %; Eosinophils % 0.3 %; Hematocrit 31.9 % (37.5-50.1); Immature Granulocytes % 2.4 % (0-4); Lymphocytes # 0.7 K/mcL (0.6-4.6); Lymphocytes % 23.7 %; Mean Corpuscular HGB Conc 30.4 g/dL (31.6-35.5); Mean Corpuscular Hemoglobin 31.7 pg (28.0-33.3); Mean Platelet Volume 9.8 fL (9.4-12.4); Monocytes # 0.5 K/mcL (0.0-1.3); Monocytes % 15.3 %; Neutrophils # 1.7 K/mcL (1.6-8.9); Platelet Count 127 K/mcL (140-400); Red Blood Count 3.06 M/mcL (4.19-5.50); Red Cell Distribution Width 19.2 % (11.5-14.5)
[2019-02-13 06:43] LABS: Hemoglobin 9.7 g/dL (12.9-16.9); Mean Corpuscular Volume 104.2 fL (83.0-100.0)
[2019-02-13 06:57] LABS: BUN/Creatinine Ratio 14 (6-26); Blood Urea Nitrogen 11 mg/dL (8-23); Calcium 8.5 mg/dL (8.6-10.3); Carbon Dioxide 27 mEq/L (23-29); Chloride 103 mEq/L (98-107); Glucose 133 mg/dL (70-105); Magnesium 1.9 mg/dL (1.6-2.6); Osmolality,Calculated 287 (280-300); Phosphorous 3.2 mg/dL (2.7-4.5); Sodium 138 mEq/L (136-145); eGFR For African Americans > 60 (> 60); eGFR For Non-African Americans > 60 (> 60)
[2019-02-13] MEDS: Pantoprazole 40 MG VIAL IVP SCH (10:06)
[2019-02-13] MEDS: cefTRIAXone 1,000 MG in Water for inj. (sterile) 10 ML IVP SCH (10:06)
[2019-02-13] MEDS: Budesonide/Formoterol 160/4.5 1 PUFF INH IH SCH ×2 (10:14→20:06)
[2019-02-13] MEDS: Tiotropium 18 MCG inhalation IH SCH (10:15)
[2019-02-13] MEDS: Fluconazole 200 MG/100 ML 200 MG/100 ML BAG IVPB SCH (17:40)
[2019-02-14] MEDS: D5% in 0.9% NACL w KCl 20 MEQ/1,000 ML MLS IVC SCH ×4 (00:50→22:59)
[2019-02-14] MEDS: *HR* Enoxaparin 30 MG/0.3 ML SYRINGE SQ SCH (05:27)
[2019-02-14 06:25] LABS: Basophils % 0.3 %; Eosinophils % 0.9 %; Hematocrit 32.9 % (37.5-50.1); Hemoglobin 10.3 g/dL (12.9-16.9); Immature Granulocytes % 1.2 % (0-4); Lymphocytes # 0.5 K/mcL (0.6-4.6); Lymphocytes % 14.2 %; Mean Corpuscular HGB Conc 31.3 g/dL (31.6-35.5); Mean Corpuscular Hemoglobin 32.3 pg (28.0-33.3); Mean Corpuscular Volume 103.1 fL (83.0-100.0); Mean Platelet Volume 9.5 fL (9.4-12.4); Monocytes # 0.3 K/mcL (0.0-1.3); Monocytes % 7.7 %; Neutrophils # 2.5 K/mcL (1.6-8.9); Platelet Count 137 K/mcL (140-400); Red Blood Count 3.19 M/mcL (4.19-5.50); Red Cell Distribution Width 19.3 % (11.5-14.5); Segmented Neutrophils % 75.7 %; White Blood Count 3.2 K/mcL (4.3-11.1)
[2019-02-14 06:47] LABS: BUN/Creatinine Ratio 9 (6-26); Blood Urea Nitrogen 7 mg/dL (8-23); Calcium 8.8 mg/dL (8.6-10.3); Carbon Dioxide 25 mEq/L (23-29); Chloride 103 mEq/L (98-107); Glucose 117 mg/dL (70-105); Osmolality,Calculated 281 (280-300); Sodium 136 mEq/L (136-145); eGFR For African Americans > 60 (> 60); eGFR For Non-African Americans > 60 (> 60)
[2019-02-14] MEDS: Budesonide/Formoterol 160/4.5 1 PUFF INH IH SCH ×2 (07:24→19:44)
[2019-02-14] MEDS: Tiotropium 18 MCG inhalation IH SCH (07:24)
[2019-02-14] MEDS: Fluconazole 200 MG/100 ML 200 MG/100 ML BAG IVPB SCH (22:49)
[2019-02-14] MEDS: Pantoprazole 40 MG VIAL IVP SCH (22:49)
[2019-02-14] MEDS: cefTRIAXone 1,000 MG in Water for inj. (sterile) 10 ML IVP SCH (22:49)
[2019-02-15] MEDS: *HR* Enoxaparin 30 MG/0.3 ML SYRINGE SQ SCH (06:06)
[2019-02-15] MEDS: Tiotropium 18 MCG inhalation IH SCH (07:34)
[2019-02-15] MEDS: Budesonide/Formoterol 160/4.5 1 PUFF INH IH SCH ×2 (07:34→20:06)
[2019-02-15] MEDS: cefTRIAXone 1,000 MG in Water for inj. (sterile) 10 ML IVP SCH (10:11)
[2019-02-15] MEDS: Pantoprazole 40 MG VIAL IVP SCH (10:13)
[2019-02-15] MEDS: Fluconazole 200 MG/100 ML 200 MG/100 ML BAG IVPB SCH (10:14)
[2019-02-15 12:10] LABS: Basophils % 0.3 %; Eosinophils % 1.3 %; Hematocrit 33.3 % (37.5-50.1); Hemoglobin 10.7 g/dL (12.9-16.9); Immature Granulocytes % 1.3 % (0-4); Lymphocytes # 0.8 K/mcL (0.6-4.6); Mean Corpuscular HGB Conc 32.1 g/dL (31.6-35.5); Mean Corpuscular Hemoglobin 32.5 pg (28.0-33.3); Mean Corpuscular Volume 101.2 fL (83.0-100.0); Mean Platelet Volume 9.8 fL (9.4-12.4); Monocytes # 0.4 K/mcL (0.0-1.3); Neutrophils # 1.8 K/mcL (1.6-8.9); Platelet Count 148 K/mcL (140-400); Red Blood Count 3.29 M/mcL (4.19-5.50); Red Cell Distribution Width 19.2 % (11.5-14.5); Segmented Neutrophils % 59.1 %; White Blood Count 3.1 K/mcL (4.3-11.1)
[2019-02-15 12:20] LABS: BUN/Creatinine Ratio 8 (6-26); Blood Urea Nitrogen 6 mg/dL (8-23); Calcium 8.9 mg/dL (8.6-10.3); Carbon Dioxide 26 mEq/L (23-29); Chloride 102 mEq/L (98-107); Glucose 102 mg/dL (70-105); Osmolality,Calculated 278 (280-300); Potassium 3.7 mEq/L (3.5-5.1); Sodium 135 mEq/L (136-145); eGFR For African Americans > 60 (> 60); eGFR For Non-African Americans > 60 (> 60)
[2019-02-15] MEDS: D5% in 0.9% NACL w KCl 20 MEQ/1,000 ML MLS IVC SCH ×2 (12:43→22:47)
[2019-02-16 05:14] LABS: Basophils % 0.3 %; Eosinophils # 0.1 K/mcL (0.0-0.6); Hematocrit 32.3 % (37.5-50.1); Hemoglobin 9.9 g/dL (12.9-16.9); Immature Granulocytes % 1.7 % (0-4); Lymphocytes # 0.7 K/mcL (0.6-4.6); Lymphocytes % 22.2 %; Mean Corpuscular HGB Conc 30.7 g/dL (31.6-35.5); Mean Corpuscular Hemoglobin 31.4 pg (28.0-33.3); Mean Corpuscular Volume 102.5 fL (83.0-100.0); Mean Platelet Volume 9.7 fL (9.4-12.4); Monocytes # 0.5 K/mcL (0.0-1.3); Monocytes % 15.2 %; Neutrophils # 1.7 K/mcL (1.6-8.9); Platelet Count 128 K/mcL (140-400); Red Blood Count 3.15 M/mcL (4.19-5.50); Red Cell Distribution Width 19.2 % (11.5-14.5); Segmented Neutrophils % 58.6 %
[2019-02-16] MEDS: *HR* Enoxaparin 30 MG/0.3 ML SYRINGE SQ SCH (05:17)
[2019-02-16 05:31] LABS: BUN/Creatinine Ratio 7 (6-26); Blood Urea Nitrogen 6 mg/dL (8-23); Calcium 8.8 mg/dL (8.6-10.3); Carbon Dioxide 24 mEq/L (23-29); Chloride 105 mEq/L (98-107); Glucose 115 mg/dL (70-105); Osmolality,Calculated 281 (280-300); Potassium 3.9 mEq/L (3.5-5.1); Sodium 136 mEq/L (136-145); eGFR For African Americans > 60 (> 60); eGFR For Non-African Americans > 60 (> 60)
[2019-02-16] MEDS: Budesonide/Formoterol 160/4.5 1 PUFF INH IH SCH ×2 (07:23→20:11)
[2019-02-16] MEDS: Tiotropium 18 MCG inhalation IH SCH (07:23)
[2019-02-16] MEDS: Ondansetron 4 MG/2 ML VIAL IVP PRN (09:35)
[2019-02-16] MEDS: D5% in 0.9% NACL w KCl 20 MEQ/1,000 ML MLS IVC SCH ×2 (09:35→20:30)
[2019-02-16] MEDS: Pantoprazole 40 MG VIAL IVP SCH (09:35)
[2019-02-16] MEDS: Fluconazole 200 MG/100 ML 200 MG/100 ML BAG IVPB SCH (09:39)
[2019-02-17] MEDS: *HR* Enoxaparin 30 MG/0.3 ML SYRINGE SQ SCH (05:16)
[2019-02-17] MEDS: D5% in 0.9% NACL w KCl 20 MEQ/1,000 ML MLS IVC SCH (05:16)
[2019-02-17 07:17] LABS: Basophils % 0.3 %; Eosinophils # 0.2 K/mcL (0.0-0.6); Eosinophils % 5.7 %; Hematocrit 31.2 % (37.5-50.1); Lymphocytes # 0.5 K/mcL (0.6-4.6); Mean Corpuscular HGB Conc 32.1 g/dL (31.6-35.5); Mean Corpuscular Hemoglobin 31.6 pg (28.0-33.3); Mean Corpuscular Volume 98.7 fL (83.0-100.0); Mean Platelet Volume 9.6 fL (9.4-12.4); Monocytes # 0.6 K/mcL (0.0-1.3); Monocytes % 19.7 %; Neutrophils # 1.6 K/mcL (1.6-8.9); Platelet Count 130 K/mcL (140-400); Red Blood Count 3.16 M/mcL (4.19-5.50); Segmented Neutrophils % 54.3 %
[2019-02-17] MEDS: Budesonide/Formoterol 160/4.5 1 PUFF INH IH SCH (07:32)
[2019-02-17] MEDS: Tiotropium 18 MCG inhalation IH SCH (07:32)
[2019-02-17 08:07] LABS: BUN/Creatinine Ratio 7 (6-26); Blood Urea Nitrogen 5 mg/dL (8-23); Calcium 8.9 mg/dL (8.6-10.3); Carbon Dioxide 23 mEq/L (23-29); Chloride 106 mEq/L (98-107); Glucose 124 mg/dL (70-105); Osmolality,Calculated 283 (280-300); Sodium 137 mEq/L (136-145); eGFR For African Americans > 60 (> 60); eGFR For Non-African Americans > 60 (> 60)
[2019-02-17] MEDS: Pantoprazole 40 MG VIAL IVP SCH (09:31)
[2019-02-17 15:09] VITALS: BP 131/78
== END 2019-02-17 17:23 | disposition home or self-care (01) | DRG 389 ==
LOC: EMEROOARM 11:28 → SUATTDRO 16:07 → 3ANU 16:07
PROVIDERS: ADMIT Student in an Organized Health Care Education/Training Program; ATTEND Internal Medicine

== ENCOUNTER 2021-06-09 07:45 | Inpatient (IN) ==
[2021-06-09 09:21] LABS: Basophils % 0.2 %; Hematocrit 26.8 % (37.5-50.1); Hemoglobin 7.8 g/dL (12.9-16.9); Immature Granulocytes % 0.9 % (0-4); Lymphocytes # 0.5 K/mcL (0.6-4.6); Lymphocytes % 11.6 %; Mean Corpuscular HGB Conc 29.1 g/dL (31.6-35.5); Mean Corpuscular Hemoglobin 24.6 pg (28.0-33.3); Mean Corpuscular Volume 84.5 fL (83.0-100.0); Mean Platelet Volume 9.5 fL (9.4-12.4); Monocytes # 0.5 K/mcL (0.0-1.3); Neutrophils # 3.4 K/mcL (1.6-8.9); Platelet Count 197 K/mcL (140-400); Red Blood Count 3.17 M/mcL (4.19-5.50); Red Cell Distribution Width 19.3 % (11.5-14.5); Segmented Neutrophils % 75.3 %; White Blood Count 4.5 K/mcL (4.3-11.1)
[2021-06-09 09:33] LABS: INR 1.1; Prothrombin Time 12.2 Seconds (9.4-12.1)
[2021-06-09 09:36] LABS: Activated Partial Thrombo Time 28.3 Seconds (26.0-36.0)
[2021-06-09 09:43] LABS: Alanine Aminotransferase 6 Units/L (7-52); Albumin 3.2 g/dL (3.5-5.7); Albumin/Globulin Ratio 0.8 (1.1-2.2); Alkaline Phosphatase 70 Units/L (34-104); Aspartate Amino Transferase 13 Units/L (13-39); BUN/Creatinine Ratio 15 (6-26); Bilirubin,Direct 0.2 mg/dL (0.0-0.2); Bilirubin,Indirect 0.6 mg/dL (0.0-1.0); Bilirubin,Total 0.8 mg/dL (0.3-1.0); Blood Urea Nitrogen 17 mg/dL (8-23); Calcium 9.2 mg/dL (8.6-10.3); Carbon Dioxide 23 mEq/L (23-29); Chloride 103 mEq/L (98-107); Globulin 3.8 g/dL (2.4-3.5); Glucose 102 mg/dL (70-105); Osmolality,Calculated 280 (280-300); Potassium 4.2 mEq/L (3.5-5.1); Sodium 134 mEq/L (136-145); Troponin I < 0.03 ng/mL (< 0.04); eGFR For African Americans > 60 (> 60); eGFR For Non-African Americans > 60 (> 60)
[2021-06-09] MEDS ORDERED: Isovue-370 500 ML BOTTLE IVP ONE (09:48)
[2021-06-09 11:14] LABS: Bacteria,Urine Few per hpf (None-Few); Bilirubin,Urine Negative (Negative); Blood,Urine Trace (Negative); Budding Yeast,Urine Few per hpf (None Seen); Clarity,Urine Turbid (Clear); Color,Urine Light-Yellow (Yellow); Glucose,Urine (UA) Normal (Normal); Ketones,Urine Negative (Negative); Leukocyte Esterase,Urine Large (Negative); Nitrite,Urine Negative (Negative); Protein,Urine 50 mg/dL (Neg-Trace); RBC,Urine 15-30 per hpf (0-3); Specific Gravity,Urine 1.012 (1.010-1.025); Squamous Epithelial Cell,Urine Few per hpf (None-Few); Urobilinogen,Urine Normal (Normal); WBC,Urine TNTC per hpf (0-3)
[2021-06-09] MEDS ORDERED: Acetaminophen 325 MG TABLET PO PRN (13:55)
[2021-06-09] MEDS ORDERED: Ondansetron ODT 4 MG TAB.RAPDIS SL PRN (13:55)
[2021-06-09] MEDS ORDERED: *HR* HYDROcodone/Acet 5/325 mg TABLET PO PRN (13:55)
[2021-06-09] MEDS ORDERED: Naloxone 0.4 MG/ML INJ IVP PRN (14:27)
[2021-06-09] MEDS: cefTRIAXone 1,000 MG in 0.9 % Sodium Chloride 10 ML IVP SCH (15:26)
[2021-06-09] MEDS: 0.9 % Sodium Chloride 1,000 ML IVC SCH (15:26)
[2021-06-09 16:13] LABS: Iron 15 mcg/dL (65-175)
[2021-06-09 16:26] LABS: Hematocrit 23.8 % (37.5-50.1)
[2021-06-09 16:41] LABS: Folate 8.5 ng/mL (3.0-16.0)
[2021-06-09] MEDS ORDERED: ALPRAZolam 0.25 MG TABLET PO ONE (21:12)
[2021-06-09 22:42] LABS: % Iron Saturation 8 % (20-55); Transferrin 140 mg/dL (203-362)
[2021-06-09] MEDS ORDERED: Iron Sucrose Complex 400 MG in 0.9 % Sodium Chloride 250 ML IVPB ONE (23:45)
[2021-06-10] MEDS: 0.9 % Sodium Chloride 1,000 ML IVC SCH (01:15)
[2021-06-10 05:12] LABS: BUN/Creatinine Ratio 12 (6-26); Blood Urea Nitrogen 13 mg/dL (8-23); Carbon Dioxide 22 mEq/L (23-29); Chloride 105 mEq/L (98-107); Glucose 85 mg/dL (70-105); Osmolality,Calculated 279 (280-300); Potassium 3.5 mEq/L (3.5-5.1); Sodium 135 mEq/L (136-145); eGFR For African Americans > 60 (> 60); eGFR For Non-African Americans > 60 (> 60)
[2021-06-10 07:01] LABS: Hematocrit 21.7 % (37.5-50.1); Hemoglobin 6.3 g/dL (12.9-16.9); Mean Corpuscular Hemoglobin 24.5 pg (28.0-33.3); Mean Corpuscular Volume 84.4 fL (83.0-100.0); Mean Platelet Volume 10.1 fL (9.4-12.4); Platelet Count 162 K/mcL (140-400); Red Blood Count 2.57 M/mcL (4.19-5.50); Red Cell Distribution Width 19.4 % (11.5-14.5); White Blood Count 4.3 K/mcL (4.3-11.1)
[2021-06-10] MEDS ORDERED: Tiotropium 10 INH DOSE IH ONE (07:15)
[2021-06-10] MEDS: Tiotropium 10 INH DOSE IH SCH (07:18)
[2021-06-10] MEDS: Multivit/Ca/Min/Fe/FA 1 TAB TABLET PO SCH (08:12)
[2021-06-10] MEDS: cefTRIAXone 1,000 MG in 0.9 % Sodium Chloride 10 ML IVP SCH (08:12)
[2021-06-10] MEDS: amLODIPine 5 MG TABLET PO SCH (08:12)
[2021-06-10] MEDS ORDERED: Ondansetron 4 MG/2 ML VIAL IVP ONE (09:11)
[2021-06-10] MEDS: Budesonide/Formoterol 160/4.5 1 PUFF INH IH SCH (23:44)
[2021-06-11 01:22] LABS: Hematocrit 23.7 % (37.5-50.1); Hemoglobin 6.9 g/dL (12.9-16.9); Mean Corpuscular HGB Conc 29.1 g/dL (31.6-35.5); Mean Corpuscular Hemoglobin 24.6 pg (28.0-33.3); Mean Corpuscular Volume 84.3 fL (83.0-100.0); Mean Platelet Volume 10.1 fL (9.4-12.4); Platelet Count 166 K/mcL (140-400); Red Blood Count 2.81 M/mcL (4.19-5.50); Red Cell Distribution Width 18.9 % (11.5-14.5)
[2021-06-11 01:46] LABS: BUN/Creatinine Ratio 9 (6-26); Blood Urea Nitrogen 10 mg/dL (8-23); Carbon Dioxide 22 mEq/L (23-29); Chloride 103 mEq/L (98-107); Glucose 92 mg/dL (70-105); Osmolality,Calculated 277 (280-300); Potassium 2.9 mEq/L (3.5-5.1); Sodium 134 mEq/L (136-145); eGFR For African Americans > 60 (> 60); eGFR For Non-African Americans > 60 (> 60)
[2021-06-11] MEDS ORDERED: 0.9 % Sodium Chloride 250 ML ONE (02:05)
[2021-06-11] MEDS: Tiotropium 10 INH DOSE IH SCH (07:51)
[2021-06-11] MEDS: Budesonide/Formoterol 160/4.5 1 PUFF INH IH SCH (07:51)
[2021-06-11] MEDS: Multivit/Ca/Min/Fe/FA 1 TAB TABLET PO SCH (08:16)
[2021-06-11] MEDS: amLODIPine 5 MG TABLET PO SCH (08:16)
[2021-06-11 15:05] VITALS: BP 112/67; PULSE 77; TEMP 97.3; O2SAT 99
== END 2021-06-11 15:41 | disposition short-term general hospital (02) | DRG 375 ==
LOC: 3ANU 07:45 → EMEROOARM 07:45 → 3ANU 14:34
PROVIDERS: ADMIT Internal Medicine; ATTEND Internal Medicine